=== PATIENT | female | born 1970 | race Caucasian/White ===

== ENCOUNTER 2019-08-17 15:21 | Emergency (ER) | payer OTHER ==
[~2019-08-17] VITALS: Ht 165.1 cm; Wt 59.4 kg
[2019-08-17 15:24] VITALS: Ht 165.1 cm; Wt 59.4 kg
[2019-08-17 16:12] LABS: PLATELET COUNT 244 x10^3mcL (130-400)
[2019-08-17 16:14] LABS: BASOPHIL % 0 % (0-2); RED CELL DISTRIBUTION WIDTH 14.8 % (11.5-14.5)
[2019-08-17 16:22] LABS: CALCIUM 10.1 mg/dL (8.5-10.1); CARBON DIOXIDE 29.4 mmol/L (21-32); CHLORIDE SERUM 100 mmol/L (98-107); CREATININE SERUM 0.8 mg/dL (0.6-1.0); GFR1 > 60 mL/min; GLUCOSE SERUM 126 mg/dL (74-106); POTASSIUM SERUM 4.4 mmol/L (3.5-5.1); SODIUM SERUM 137 mmol/L (136-145)
[2019-08-17 16:42] LABS: ALBUMIN 4.4 g/dL (3.4-5.0); ALKALINE PHOSPHATASE 90 U/L (46-116); ALT/SGPT 220 U/L (14-59); AST/SGOT 145 U/L (15-37); BILIRUBIN TOTAL 0.43 mg/dL (0.20-1.00)
[2019-08-17 16:50] LABS: CHOLESTEROL 323 mg/dL (<200); HDL CHOLESTEROL 129 mg/dL (40-60)
[2019-08-17 17:17] LABS: TOTAL PROTEIN, SERUM 8.3 g/dL (6.4-8.2)
[2019-08-17 17:25] VITALS: BP 125/80
== END 2019-08-17 19:04 | disposition home or self-care (01) ==
LOC: ED 15:21
PROVIDERS: Emergency Medicine
DX: R55 Syncope and collapse (principal); K62.5 Hemorrhage of anus and rectum; R10.9 Unspecified abdominal pain; E86.0 Dehydration; I10 Essential (primary) hypertension; Z98.890 Other specified postprocedural states
CPT/HCPCS: J7030; Q0092